=== PATIENT | female | born 1985 | race Caucasian/White ===

== ENCOUNTER 2017-02-23 08:40 | Inpatient (IN) | payer OTHER ==
[~2017-02-23] VITALS: Ht 160 cm; Wt 112.5 kg
[2017-03-08] MEDS ORDERED: METOPROLOL TARTRATE 25 MG TAB PO PRN (06:15)
[2017-03-08] MEDS ORDERED: SODIUM CHLORID 0.9% 500 ML IV PRN (06:15)
[2017-03-08] MEDS ORDERED: POVIDONE IODINE 5% (ANTISEPSIS KIT) 4 APPLICATIONS EACH NARE PRN (06:15)
[2017-03-08] MEDS ORDERED: INSULIN HUMAN REGULAR 1,000 UNITS/10 ML VIAL SQ PRN (06:15)
[2017-03-08] MEDS ORDERED: CHLORHEXIDINE GLUCONATE 2 % 1 PACK (2 CLOTHS) TOPICAL PRN (06:15)
[2017-03-08] MEDS ORDERED: LACTATED RINGER'S 1000 ML IV PRN (06:15)
[2017-03-08] MEDS ORDERED: ACETAMINOPHEN 1000 MG/100 ML VIAL IV SCH (06:30)
[2017-03-08] MEDS ORDERED: ONDANSETRON HCL 4 MG/2 ML VIAL IV PUSH SCH (06:30)
[2017-03-08] MEDS ORDERED: SCOPOLAMINE 1.5 MG PATCH T-DERMAL SCH (06:30)
[2017-03-08] MEDS ORDERED: APREPITANT 40 MG CAP PO SCH (06:30)
[2017-03-08 07:21] VITALS: BP 114/69; PULSE 73; RESP 20; TEMP 98.5; O2SAT 98
[2017-03-08] MEDS ORDERED: metroNIDAZOLE 500 MG INJ 100 ML IV ONE (07:39)
[2017-03-08] MEDS ORDERED: CLINDAMYCIN PHOS 900 MG/6 ML VIAL ONE (07:39)
[2017-03-08] MEDS ORDERED: SODIUM CHLORIDE 0.9% INJ 100 ML ONE (07:39)
[2017-03-08] MEDS ORDERED: FAMOTIDINE 20 MG/2 ML VIAL ONE (08:40)
[2017-03-08] MEDS ORDERED: BUPIVACAINE/EPINEPHRINE 0.25% PF 30 ML VIAL ONE (09:34)
[2017-03-08] MEDS ORDERED: MIDAZOLAM HCL 2 MG/2 ML VIAL ONE (09:40)
[2017-03-08] MEDS ORDERED: DEXAMETHASONE SOD PHOS 4 MG/ML VIAL ONE (09:40)
[2017-03-08] MEDS ORDERED: ONDANSETRON HCL 4 MG/2 ML VIAL IV PUSH ONE (09:54)
[2017-03-08] MEDS ORDERED: ePHEDrine/NS 25 MG/5 ML SYR IV ONE (09:54)
[2017-03-08] MEDS ORDERED: LACTATED RINGER'S 1000 ML INJ 1,000 ML IV ONE (09:54)
[2017-03-08] MEDS ORDERED: NEOSTIGMINE 3 MG/3 ML SYR IV ONE (09:54)
[2017-03-08] MEDS ORDERED: PROPOFOL 200 MG/20 ML AMP IV ONE (09:54)
[2017-03-08] MEDS ORDERED: NEOSTIGMINE METHYLSULFATE 10 MG/10 ML VIAL IV PUSH ONE (10:18)
[2017-03-08] MEDS ORDERED: METHYLENE BLUE 10 MG/ML VIAL NG ONE (10:31)
[2017-03-08] MEDS: 1/2 NS + KCL 20 MEQ INJ 1,000 ML IV SCH ×3 (10:50→21:29)
[2017-03-08] MEDS ORDERED: diphenhydrAMINE HCL 50 MG/ML VIAL IV PRN (11:00)
[2017-03-08] MEDS ORDERED: diphenhydrAMINE HCL ELIXIR 12.5 MG/5 ML CUP PO PRN (11:00)
[2017-03-08] MEDS ORDERED: Post-op Orders (for Pharmacy) MISC OTHER ONE (11:00)
[2017-03-08] MEDS ORDERED: ENALAPRILAT 1.25 MG/ML VIAL IV PUSH PRN (11:00)
[2017-03-08] MEDS ORDERED: NALOXONE HCL 0.4 MG/ML AMP IV PRN (11:00)
[2017-03-08] MEDS ORDERED: ACETAMINOPHEN 325MG/HYDROcodone 7.5MG/15ML UDC PO PRN ×2 (11:00)
[2017-03-08] MEDS ORDERED: ONDANSETRON HCL 4 MG/2 ML VIAL IV PRN (11:00)
[2017-03-08] MEDS ORDERED: MORPHINE SULFATE 30 MG/30 ML PCA IV SCH (11:00)
[2017-03-08] MEDS ORDERED: SODIUM CHLORIDE 0.9% FLUSH 10 ML FLUSH IV FLUSH PRN (11:00)
[2017-03-08] MEDS ORDERED: fentaNYL CITRATE 250 MCG/5 ML AMP ONE (11:31)
[2017-03-08] MEDS: RESP: ALBUTEROL 2.5 MG/3 ML NEB (SCH) INH (12:00)
[2017-03-08] MEDS: METOCLOPRAMIDE HCL 10 MG/2 ML VIAL IV PUSH SCH ×3 (12:00→21:31)
[2017-03-08 16:00] VITALS: BP 104/56; PULSE 85; RESP 18; TEMP 97.2; O2SAT 99
[2017-03-08] MEDS ORDERED: ENOXAPARIN SODIUM 40 MG/0.4 ML SYRINGE SQ SCH (16:00)
[2017-03-08] MEDS: metroNIDAZOLE 500 MG INJ 100 ML IV SCH (17:05)
[2017-03-08 20:00] VITALS: BP 112/56; PULSE 95; RESP 20; TEMP 96.5; O2SAT 99
[2017-03-08 20:18] VITALS: O2SAT 99
[2017-03-08] MEDS: SODIUM CHLORIDE 0.9% FLUSH 10 ML FLUSH IV FLUSH SCH (21:00)
[2017-03-08] MEDS: PCA - TOTAL MG MORPHINE DELIVERED PER SHIFT SCH (21:30)
[2017-03-09] VITALS: BP 124/68; PULSE 78; RESP 20; TEMP 97.2; O2SAT 97
[2017-03-09] MEDS: 1/2 NS + KCL 20 MEQ INJ 1,000 ML IV SCH ×3 (00:10→10:06)
[2017-03-09] MEDS: RESP: ALBUTEROL 2.5 MG/3 ML NEB (SCH) INH ×4 (01:37→11:35)
[2017-03-09] MEDS: PCA - TOTAL MG MORPHINE DELIVERED PER SHIFT SCH (05:14)
[2017-03-09] MEDS: METOCLOPRAMIDE HCL 10 MG/2 ML VIAL IV PUSH SCH (05:14)
[2017-03-09 05:16] LABS: AUTOMATED NEUTROPHIL # 5.4 TH/MM3 (1.8-7.7); BASOPHIL % 0.3 % (0.0-2.0); EOSINOPHIL % 0.1 % (0.0-4.0); HEMO FLAGS DIFF FINAL; LYMPH % 24.7 % (9.0-44.0); LYMPHOCYTE # 1.9 TH/MM3 (1.0-4.8); MEAN CELL VOLUME 85.9 FL (80.0-100.0); MEAN CORPUSCULAR HEMOGLOBIN 28.8 PG (27.0-34.0); MEAN CORPUSCULAR HGB CONC 33.6 % (32.0-36.0); MONO % 5.7 % (0.0-8.0); NEUT % 69.2 % (16.0-70.0); PLATELET COUNT 240 TH/MM3 (150-450); RED BLOOD COUNT 4.19 MIL/MM3 (4.00-5.30); RED CELL DISTRIBUTION WIDTH 14.7 % (11.6-17.2); WHITE BLOOD COUNT 7.8 TH/MM3 (4.0-11.0)
[2017-03-09 05:33] LABS: BICARBONATE 22.9 MEQ/L (21.0-32.0); MAGNESIUM 2.4 MG/DL (1.5-2.5); POTASSIUM 3.9 MEQ/L (3.5-5.1)
[2017-03-09 08:00] VITALS: BP 106/56; PULSE 77; RESP 16; TEMP 97.1; O2SAT 95
[2017-03-09 08:34] VITALS: O2SAT 96
[2017-03-09] MEDS: SODIUM CHLORIDE 0.9% FLUSH 10 ML FLUSH IV FLUSH SCH (08:46)
[2017-03-09] MEDS ORDERED: PANTOPRAZOLE SOD 40 MG DELAYED RELEASE TAB PO SCH (09:00)
--- NOTE | 2017-03-09 09:09 | HHI.PR ---
Subjective Subjective Notes 31yo female POD#1 VSG. Sitting up in chair in no acute distress. She denies much nausea and no vomiting. She is passing flatus. Objective Vitals/I&O Vital Signs Date Time Temp Pulse Resp B/P Pulse Ox O2 Delivery O2 Flow Rate FiO2 03/09/17 08:34 96 21 03/09/17 08:00 97.1 77 16 106/56 03/08/17 14:45 Nasal Cannula 3 Labs Laboratory Tests Test 03/09/17 04:27 White Blood Count 7.8 Red Blood Count 4.19 Hemoglobin 12.1 Hematocrit 36.0 Mean Corpuscular Volume 85.9 Mean Corpuscular Hemoglobin 28.8 Mean Corpuscular Hemoglobin 33.6 Concent Red Cell Distribution Width 14.7 Platelet Count 240 Mean Platelet Volume 8.0 Neutrophils (%) (Auto) 69.2 Lymphocytes (%) (Auto) 24.7 Monocytes (%) (Auto) 5.7 Eosinophils (%) (Auto) 0.1 Basophils (%) (Auto) 0.3 Neutrophils # (Auto) 5.4 Lymphocytes # (Auto) 1.9 Monocytes # (Auto) 0.5 Eosinophils # (Auto) 0.0 Basophils # (Auto) 0.0 CBC Comment DIFF FINAL Differential Comment Sodium Level 140 Potassium Level 3.9 Chloride Level 111 Carbon Dioxide Level 22.9 Anion Gap 6 Blood Urea Nitrogen 5 Creatinine 0.52 Estimat Glomerular Filtration 138 Rate Random Glucose 76 Calcium Level 8.0 Magnesium Level 2.4 Cardiovascular: Regular Lungs: Clear Abdomen: Post-op tenderness Extremities: Perfused Wound Wound : Wound Location: Abdomen Appearance: Clean & Dry A/P Assessment and Plan Continue to increase fluids as tolerated Continue with frequent ambulation Serum Ca 8.0, will order PCC to verify and correct if indicated The exam, history, and the medical decision-making described in the above note were completed with the assistance of the mid-level provider. I reviewed and agree with the findings presented. I attest that I had a [id number] encounter with the patient on the same day, and personally performed and documented my assessment and findings in the medical record. Discharge Planning D/C home later on today AlisiaTereza Lorene EISENBERG Mar 09, 2017 09:09 Jef Cherry MD Mar 10, 2017 07:33
[2017-03-09] MEDS: metroNIDAZOLE 500 MG INJ 100 ML IV SCH ×2 (09:23)
[2017-03-09 09:53] LABS: CALCIUM-PROTEIN CORRECTED 8.6 MG/DL (8.5-10.1)
[2017-03-09] MEDS ORDERED: METOCLOPRAMIDE HCL 10 MG/2 ML VIAL IV PUSH PRN (11:00)
[2017-03-09 12:00] VITALS: BP 110/60; PULSE 65; RESP 16; TEMP 97.8; O2SAT 97
--- NOTE | 2017-03-09 18:22 | MP ---
cc: FRANKIE CHERRY DATE OF : 03/15/1995 DATE OF SURGERY: 03/08/2017 PREOPERATIVE DIAGNOSIS Morbid obesity with a BMI of 44, complicated by essential hypertension, obstructive sleep apnea, type 2 diabetes, hyperlipidemia. POSTOPERATIVE DIAGNOSIS Morbid obesity with a BMI of 44, complicated by essential hypertension, obstructive sleep apnea, type 2 diabetes, hyperlipidemia. PROCEDURE Laparoscopic vertical sleeve gastrectomy over a 36-Anguillan ViSiGi bougie. SURGEON Frankie Cherry MD WRAPPER STEMMER HAND: Dr. Serrano, Dr. Serrano assistance was necessary for procedure due to the complexity of the procedure, it was necessary for manipulation and exposure. The assistant to the president provided was used at the back table for the procedure. ANESTHESIA General endotracheal anesthesia ESTIMATED BLOOD LOSS Scant. FINDINGS Fatty liver SPECIMENS None. COMPLICATIONS None. PROCEDURE IN DETAIL The patient was brought to the operating room and placed on the operating table in supine position, bilateral sequential inflation device placed on lower extremities. General anesthesia was instituted. Antibiotics was initiated. The abdomen was prepped and draped sterilely. A point 15 cm distal to the xiphoid in the midline was anesthetized with 0.25% Marcaine with epinephrine. A skin incision was made, 5-mm OptiView port placed under direct vision and pneumoperitoneum created. Under direct vision, three 5-mm left upper quadrant, a 15-mm right upper quadrant, 5-mm right upper quadrant ports placed. Prior to placement of all ports the skin and peritoneum were anesthetized with 0.25% Marcaine with epinephrine. The patient was placed in reverse Trendelenburg position left side up, the Tanisha-Flex retractor was placed. The left lobe of the liver was retracted. The vasculature along the greater curvature of the stomach was using harmonic scalpel starting a distance 5-cm proximal to the pylorus and carried towards the angle of His. The angle of His was taken down bluntly. Posterior ligamentous attachments were sharply . A 36-Anguillan ViSiGi bougie was placed at the start of the case, was placed on suction. Division of the stomach started 5 cm proximal to the pylorus and carried towards the angle of His to completely excise approximately 80% of the stomach. This was performed using an Goodwell Flex stapler at the pylorus. The first firing was with a black load, followed by a green load and four gold loads. All staple loads were reinforced with SeamGuard. A distance of 2 cm was left from the angle incisura and the staple line and a distance of 1 cm left from the GE junction and the staple line. The pylorus was then occluded, methylene blue tinged saline was instilled. There was no evidence of extravasation. The gastrocolic ligament was then sutured to the posterior leaflet of the SeamGuard using a 2-0 Vicryl suture in a running manner. Bleeding points were controlled with Evicel. The excised stomach was removed from the peritoneal cavity through the 15-mm port site in an Endopouch. The fascia at the 15-mm port site was approximated with 0 Vicryl suture. The CO2 was then released, all ports were removed, all skin incisions closed with 4-0 Monocryl. The abdominal wall was cleaned. A sterile dressing was placed. The patient was awakened and taken to the recovery room. MD MAU Sewell/dylan /11:03 AM /6:15 PM
== END 2017-03-09 13:19 | disposition home or self-care (01) | DRG 621 ==
LOC: HSDI 03-08 05:27 → N07A 03-08 14:57
PROVIDERS: ADMIT Surgery; ATTEND Surgery
PROC: 0DB64Z3 Excision of Stomach, Percutaneous Endoscopic Approach, Vertical (ICD-10-PCS; principal; 2017-03-08 09:46)
DX: E66.01 Morbid (severe) obesity due to excess calories (principal); K76.0 Fatty (change of) liver, not elsewhere classified; I10 Essential (primary) hypertension; Z68.41 Body mass index [BMI] 40.0-44.9, adult; G47.33 Obstructive sleep apnea (adult) (pediatric); E78.5 Hyperlipidemia, unspecified; E11.9 Type 2 diabetes mellitus without complications
CPT/HCPCS: 80048; 83735; 84155; 85025; 94150; 94640; 94664; J0131; J0690; J1100; J1650; J2250; J2270; J2405; J2710; J2765; J3010; J7120; J7613; J8501